=== PATIENT | male | born 1965 | race Caucasian/White ===

== ENCOUNTER → 2016-09-11 | Outpatient (CLI) | payer OTHER ==
[2016-09-11 12:51] LABS: MEAN CORPUSCULAR HEMOGLOBIN 30.2 pg (27.0-33.0); MEAN CORPUSCULAR VOLUME 88.8 fl (80.0-96.0); RED CELL DISTRIBUTION WIDTH 11.7 % (11.5-14.5); WHITE BLOOD COUNT 8.4 K/mm3 (4.0-10.0)
== END ==
LOC: M LAB 11:50
PROVIDERS: ATTEND Nurse Practitioner Family
DX: E78.5 Hyperlipidemia, unspecified (principal)

== ENCOUNTER → 2016-09-26 | Outpatient (REF) | payer OTHER ==
[2016-09-26 18:26] LABS: ALBUMIN 4.6 GM/DL (3.2-5.2); ALBUMIN/GLOBULIN RATIO 1.77 (1.00-1.93); ALKALINE PHOSPHATASE 36 U/L (45-117); ALT/SGPT 36 U/L (12-78); ANION GAP 9 MEQ/L (8-16); AST/SGOT 20 U/L (15-37); BILIRUBIN,TOTAL 0.3 MG/DL (0.2-1.0); BLOOD UREA NITROGEN 27 MG/DL (7-18); CALCIUM LEVEL 9.3 MG/DL (8.5-10.1); CARBON DIOXIDE LEVEL 28 MEQ/L (21-32); CHLORIDE LEVEL 105 MEQ/L (98-107); CREATININE FOR GFR 0.98 MG/DL (0.70-1.30); GLOMERULAR FILTRATION RATE > 60.0 (>56); GLUCOSE, FASTING 96 MG/DL (70-105); POTASSIUM SERUM 4.6 MEQ/L (3.5-5.1); SODIUM LEVEL 142 MEQ/L (136-145); TOTAL PROTEIN 7.2 GM/DL (6.4-8.2)
[2016-09-26 18:29] LABS: BASO # 0.1 K/mm3 (0.0-0.2); BASO % 0.9 % (0.0-1.0); EOS # 0.1 K/mm3 (0.0-0.50); EOS % 1.6 % (0.0-3.0); LARGE UNSTAINED CELL # 0.3 K/mm3 (0.0-0.4); LYMPH # 4.9 K/mm3 (1.5-4.5); LYMPH % 55.9 % (24.0-44.0); MEAN CORPUSCULAR HEMOGLOBIN 30.6 pg (27.0-33.0); MEAN CORPUSCULAR HGB CONC 34.1 g/dl (32.0-36.5); MONO # 0.5 K/mm3 (0.0-0.8); MONO % 5.7 % (0.0-5.0); NEUTROPHILS # 2.6 K/mm3 (1.8-7.7); NEUTROPHILS % 31.9 % (36.0-66.0); PLATELET COUNT, AUTOMATED 148 k/mm3 (150-450); RED CELL DISTRIBUTION WIDTH 11.8 % (11.5-14.5); WHITE BLOOD COUNT 8.2 K/mm3 (4.0-10.0)
== END ==
LOC: M LABNEURO 16:46
PROVIDERS: ATTEND Psychiatry & Neurology Neurology
DX: R56.9 Unspecified convulsions (principal)

== ENCOUNTER → 2017-02-27 | Outpatient (REF) | payer OTHER ==
[2017-02-27 14:44] LABS: BASO # 0.1 K/mm3 (0.0-0.2); BASO % 0.7 % (0.0-1.0); EOS # 0.2 K/mm3 (0.0-0.50); LARGE UNSTAINED CELL # 0.4 K/mm3 (0.0-0.4); LARGE UNSTAINED CELL % 4.5 % (0.0-4.0); LYMPH # 5.4 K/mm3 (1.5-4.5); LYMPH % 54.2 % (24.0-44.0); MEAN CORPUSCULAR HEMOGLOBIN 31.1 pg (27.0-33.0); MEAN CORPUSCULAR HGB CONC 34.8 g/dl (32.0-36.5); MEAN CORPUSCULAR VOLUME 89.4 fl (80.0-96.0); MONO # 0.6 K/mm3 (0.0-0.8); MONO % 5.9 % (0.0-5.0); NEUTROPHILS % 32.7 % (36.0-66.0); PLATELET COUNT, AUTOMATED 161 k/mm3 (150-450)
[2017-02-27 14:51] LABS: WHITE BLOOD COUNT 9.2 K/mm3 (4.0-10.0)
[2017-02-27 15:35] LABS: ALBUMIN 4.3 GM/DL (3.2-5.2); ALBUMIN/GLOBULIN RATIO 1.54 (1.00-1.93); ALKALINE PHOSPHATASE 34 U/L (45-117); ALT/SGPT 43 U/L (12-78); ANION GAP 8 MEQ/L (8-16); AST/SGOT 20 U/L (15-37); BILIRUBIN,TOTAL 0.3 MG/DL (0.2-1.0); BLOOD UREA NITROGEN 27 MG/DL (7-18); CALCIUM LEVEL 9.6 MG/DL (8.5-10.1); CARBON DIOXIDE LEVEL 24 MEQ/L (21-32); CHLORIDE LEVEL 108 MEQ/L (98-107); CHOLESTEROL LEVEL 202 MG/DL (<200); CREATININE FOR GFR 1.15 MG/DL (0.70-1.30); GLOMERULAR FILTRATION RATE > 60.0 (>56); GLUCOSE, FASTING 98 MG/DL (70-105); POTASSIUM SERUM 4.5 MEQ/L (3.5-5.1); SODIUM LEVEL 140 MEQ/L (136-145); TOTAL PROTEIN 7.1 GM/DL (6.4-8.2); TRIGLYCERIDES LEVEL 359 MG/DL (<150)
== END ==
LOC: M LAB REF 13:37
PROVIDERS: ATTEND Nurse Practitioner Family
DX: E78.5 Hyperlipidemia, unspecified (principal); E55.9 Vitamin D deficiency, unspecified

== ENCOUNTER → 2017-06-14 | Outpatient (CLI) | payer OTHER ==
[2017-06-14 15:22] LABS: BLOOD UREA NITROGEN 21 MG/DL (7-18); GLOMERULAR FILTRATION RATE > 60.0 (>56)
== END ==
LOC: M LABNEURO 11:00
PROVIDERS: ATTEND Psychiatry & Neurology Neurology
DX: I10 Essential (primary) hypertension (principal)

== ENCOUNTER → 2017-07-31 | Outpatient (REF) | payer OTHER ==
[2017-07-31 19:03] LABS: BASO # 0.1 10^3/uL (0.0-0.2); BASO % 0.7 % (0.0-1.0); EOS # 0.1 10^3/uL (0.0-0.50); EOS % 0.8 % (0.0-3.0); HEMATOCRIT 42.1 % (42.0-52.0); HEMOGLOBIN 14.3 g/dl (14.0-18.0); IMMATURE GRANULOCYTE % 0.2 % (0-0); LYMPH # 4.5 10^3/uL (1.5-4.5); LYMPH % 49.5 % (24.0-44.0); MEAN CORPUSCULAR HEMOGLOBIN 29.9 pg (27.0-33.0); MEAN CORPUSCULAR VOLUME 88.1 fl (80.0-96.0); MONO # 0.7 10^3/uL (0.0-0.8); MONO % 7.4 % (0.0-5.0); NEUTROPHILS # 3.7 10^3/uL (1.8-7.7); NEUTROPHILS % 41.4 % (36.0-66.0); PLATELET COUNT, AUTOMATED 171 10^3/uL (150-450); RED BLOOD COUNT 4.78 10^6/uL (4.30-6.10); RED CELL DISTRIBUTION WIDTH 11.9 % (11.5-14.5)
== END ==
LOC: M LAB REF 16:49
DX: R59.1 Generalized enlarged lymph nodes (principal)

== ENCOUNTER → 2017-08-20 | Outpatient (REF) | payer OTHER ==
[2017-08-20 17:51] LABS: INR 0.92; PARTIAL THROMBOPLASTIN TIME 28.7 SECONDS (26.8-37.9); PROTHROMBIN TIME 12.4 SECONDS (12.4-14.5)
[2017-08-20 18:12] LABS: SLIDE REVIEW Report; SOURCE PERIPHERAL SMEAR
[2017-08-20 18:13] LABS: REASON FOR REVIEW OTHER
[2017-08-20 18:17] LABS: C REACTIVE PROTEIN QUANTITATIV < 0.30 MG/DL (0.00-0.30)
[2017-08-20 19:34] LABS: ERYTHROCYTE SEDIMENTATION RATE 2 mm/hr (0-20)
[2017-08-22 09:38] LABS: HEPATITIS B SURFACE ANTIGEN NEGATIVE (NEGATIVE)
[2017-08-22 10:03] LABS: HEPATITIS C VIRUS ABY INDEX < 0.0 INDEX (<0.8)
[2017-08-22 10:04] LABS: HEPATITIS B CORE ANTIBODY IGM NEGATIVE (NEGATIVE); HIV 1&2 SCREEN CENTAUR NEGATIVE (NEGATIVE)
[2017-08-23 00:07] LABS: EBV VIRAL CAPSID AG IgM <36.0 U/mL (0.0-35.9)
[2017-08-23 00:07] LABS: EBV AB TO NUCLEAR ANTIGEN 66.9 U/mL (0.0-17.9)
== END ==
LOC: M LAB REF 16:47
DX: R59.1 Generalized enlarged lymph nodes (principal)

== ENCOUNTER → 2017-08-21 | Outpatient (CLI) | payer OTHER | LOC: M PAIN 13:30 | DX: M54.2 Cervicalgia (principal); M79.1 Myalgia; G89.29 Other chronic pain; G40.909 Epilepsy, unspecified, not intractable, without status epilepticus; K21.9 Gastro-esophageal reflux disease without esophagitis; E78.00 Pure hypercholesterolemia, unspecified; Z79.899 Other long term (current) drug therapy; Z88.5 Allergy status to narcotic agent; Z88.8 Allergy status to other drugs, medicaments and biological substances; Z98.1 Arthrodesis status | CPT/HCPCS: G0463 ==

== ENCOUNTER → 2017-09-03 | Outpatient (REF) | payer OTHER | LOC: M LAB REF 17:17 | DX: R59.0 Localized enlarged lymph nodes (principal); C85.10 Unspecified B-cell lymphoma, unspecified site | CPT/HCPCS: 88300 ==

== ENCOUNTER → 2017-09-10 | Outpatient (CLI) | payer MEDICARE, MEDICAID ==
[~2017-09-10] MED LIST: LIDOCAINE 1% MDV 20ML VIAL As Ordered
== END ==
LOC: M RAD 12:05 → M RADPRO 12:05
DX: C85.10 Unspecified B-cell lymphoma, unspecified site (principal); R59.0 Localized enlarged lymph nodes; I10 Essential (primary) hypertension; E78.5 Hyperlipidemia, unspecified; M54.12 Radiculopathy, cervical region; I25.10 Atherosclerotic heart disease of native coronary artery without angina pectoris; H35.52 Pigmentary retinal dystrophy; H54.415A Blindness right eye category 5, normal vision left eye; Z79.899 Other long term (current) drug therapy; Z88.5 Allergy status to narcotic agent; Z88.1 Allergy status to other antibiotic agents; Z87.19 Personal history of other diseases of the digestive system; Z98.890 Other specified postprocedural states; Z86.69 Personal history of other diseases of the nervous system and sense organs; Z86.39 Personal history of other endocrine, nutritional and metabolic disease
CPT/HCPCS: 10022

== ENCOUNTER → 2017-09-18 | Outpatient (CLI) | payer OTHER | LOC: M PAIN 13:30 | DX: M54.2 Cervicalgia (principal); M79.1 Myalgia; K21.9 Gastro-esophageal reflux disease without esophagitis; G40.901 Epilepsy, unspecified, not intractable, with status epilepticus; Z79.899 Other long term (current) drug therapy; Z88.8 Allergy status to other drugs, medicaments and biological substances | CPT/HCPCS: G0463 ==

== ENCOUNTER → 2017-09-26 | Outpatient (CLI) | payer MEDICARE, OTHER, MEDICAID ==
[~2017-09-26] MED LIST changes: +GASTROGRAFIN SOLUTION 30ML (Q9963) As Ordered; +ISOVUE-370 76% 100ML VIAL (Q9967) As Ordered; -LIDOCAINE 1% MDV 20ML VIAL As Ordered
== END ==
LOC: M RAD 12:01
DX: C91.10 Chronic lymphocytic leukemia of B-cell type not having achieved remission (principal); N28.1 Cyst of kidney, acquired; K57.30 Diverticulosis of large intestine without perforation or abscess without bleeding
CPT/HCPCS: Q9963

== ENCOUNTER → 2017-11-05 | Outpatient (REF) | payer OTHER ==
[2017-11-05 13:33] LABS: BASO % 0.5 % (0.0-1.0); EOS # 0.1 10^3/uL (0.0-0.50); EOS % 1.7 % (0.0-3.0); HEMATOCRIT 42.4 % (42.0-52.0); HEMOGLOBIN 14.5 g/dl (13.5-17.5); IMMATURE GRANULOCYTE % 0.2 % (0-3.0); MEAN CORPUSCULAR HEMOGLOBIN 30.5 pg (27.0-33.0); MEAN CORPUSCULAR HGB CONC 34.2 g/dl (32.0-36.5); MEAN CORPUSCULAR VOLUME 89.1 fl (80.0-96.0); MONO # 0.8 10^3/uL (0.0-0.8); MONO % 9.9 % (0.0-5.0); NEUTROPHILS # 3.3 10^3/uL (1.8-7.7); NEUTROPHILS % 39.7 % (36.0-66.0); PLATELET COUNT, AUTOMATED 174 10^3/uL (150-450); RED BLOOD COUNT 4.76 10^6/uL (4.30-6.10); RED CELL DISTRIBUTION WIDTH 12.1 % (11.5-14.5); WHITE BLOOD COUNT 8.4 10^3/uL (4.0-10.0)
[2017-11-05 14:29] LABS: ALBUMIN 4.5 GM/DL (3.2-5.2); ALBUMIN/GLOBULIN RATIO 1.55 (1.00-1.93); ALKALINE PHOSPHATASE 42 U/L (45-117); ALT/SGPT 37 U/L (12-78); ANION GAP 9 MEQ/L (8-16); AST/SGOT 19 U/L (7-37); BILIRUBIN,TOTAL 0.2 MG/DL (0.2-1.0); BLOOD UREA NITROGEN 20 MG/DL (7-18); CALCIUM LEVEL 9.4 MG/DL (8.5-10.1); CARBON DIOXIDE LEVEL 22 MEQ/L (21-32); CHLORIDE LEVEL 109 MEQ/L (98-107); CREATININE FOR GFR 1.03 MG/DL (0.70-1.30); GLOMERULAR FILTRATION RATE > 60.0 (>56); GLUCOSE, FASTING 109 MG/DL (70-100); POTASSIUM SERUM 4.6 MEQ/L (3.5-5.1); SODIUM LEVEL 140 MEQ/L (136-145); TOTAL PROTEIN 7.4 GM/DL (6.4-8.2); VALPROIC ACID (DEPAKOTE) 45.9 UG/ML (50.0-100.0)
[2017-11-07 10:17] LABS: LEVETIRACETAM (KEPPRA) 7.8 ug/mL (10.0-40.0)
== END ==
LOC: M LABNEURO 11:12
DX: R56.9 Unspecified convulsions (principal)
CPT/HCPCS: 80164

== ENCOUNTER → 2017-11-08 | Outpatient (CLI) | payer OTHER | LOC: M PAIN 13:00 | DX: G89.29 Other chronic pain (principal); M54.2 Cervicalgia; M79.1 Myalgia; G40.909 Epilepsy, unspecified, not intractable, without status epilepticus; M54.5 Low back pain; G43.909 Migraine, unspecified, not intractable, without status migrainosus; H53.149 Visual discomfort, unspecified; K21.9 Gastro-esophageal reflux disease without esophagitis; E78.00 Pure hypercholesterolemia, unspecified; Z79.899 Other long term (current) drug therapy; Z88.6 Allergy status to analgesic agent; Z88.5 Allergy status to narcotic agent; Z88.8 Allergy status to other drugs, medicaments and biological substances | CPT/HCPCS: G0463 ==

== ENCOUNTER → 2017-12-26 | Outpatient (REF) | payer OTHER, MEDICARE, MEDICAID ==
[2017-12-27 14:16] LABS: BETA 2 MICROGLOBULIN 1.6 mg/L (0.6-2.4)
== END ==
LOC: M LAB REF 12:55
DX: C91.50 Adult T-cell lymphoma/leukemia (HTLV-1-associated) not having achieved remission (principal)
CPT/HCPCS: 82232

== ENCOUNTER → 2018-01-22 | Outpatient (REF) | payer OTHER, MEDICARE, MEDICAID ==
[2018-01-22 18:36] LABS: ESTIMATED AVERAGE GLUCOSE 120 MG/DL (60-110); HEMOGLOBIN A1c 5.8 %
[2018-01-22 18:58] LABS: HEMATOCRIT 40.2 % (42.0-52.0); HEMOGLOBIN 13.9 g/dl (13.5-17.5); MEAN CORPUSCULAR HEMOGLOBIN 30.8 pg (27.0-33.0); MEAN CORPUSCULAR HGB CONC 34.6 g/dl (32.0-36.5); MEAN CORPUSCULAR VOLUME 88.9 fl (80.0-96.0); PLATELET COUNT, AUTOMATED 186 10^3/uL (150-450); RED BLOOD COUNT 4.52 10^6/uL (4.30-6.10); RED CELL DISTRIBUTION WIDTH 11.9 % (11.5-14.5); WHITE BLOOD COUNT 15.2 10^3/uL (4.0-10.0)
[2018-01-22 19:05] LABS: ADD MANUAL DIFFER YES; DIFF SLIDE NUMBER 388; POSITIVE DIFF POS FLAG
[2018-01-22 19:39] LABS: EOSINOPHILS 3 % (0-5); LYMPHOCYTES 34 % (16-52); MONOCYTES 5 % (0-8); NEUTROPHILS 58 % (35-75); PLATELET ESTIMATE NORMAL (NORMAL)
[2018-01-22 22:06] LABS: ALBUMIN 4.3 GM/DL (3.2-5.2); ALBUMIN/GLOBULIN RATIO 1.65 (1.00-1.93); ALKALINE PHOSPHATASE 45 U/L (45-117); ALT/SGPT 33 U/L (12-78); ANION GAP 9 MEQ/L (8-16); AST/SGOT 17 U/L (7-37); BILIRUBIN,TOTAL 0.4 MG/DL (0.2-1.0); BLOOD UREA NITROGEN 25 MG/DL (7-18); CALCIUM LEVEL 8.6 MG/DL (8.5-10.1); CARBON DIOXIDE LEVEL 23 MEQ/L (21-32); CHLORIDE LEVEL 111 MEQ/L (98-107); CHOLESTEROL LEVEL 123 MG/DL (<200); CHOLESTEROL RISK RATIO 3.727 (<5); CREATININE FOR GFR 0.99 MG/DL (0.70-1.30); GLOMERULAR FILTRATION RATE > 60.0 (>56); GLUCOSE, FASTING 89 MG/DL (70-100); HDL CHOLESTEROL 33 MG/DL (>40); LDL CHOLESTEROL 46.6 MG/DL (<100); NON-HDL-C 90 MG/DL; POTASSIUM SERUM 4.7 MEQ/L (3.5-5.1); SODIUM LEVEL 143 MEQ/L (136-145); TOTAL PROTEIN 6.9 GM/DL (6.4-8.2); TRIGLYCERIDES LEVEL 217 MG/DL (<150)
== END ==
LOC: M LAB REF 17:39
DX: E78.5 Hyperlipidemia, unspecified (principal); I10 Essential (primary) hypertension; E55.9 Vitamin D deficiency, unspecified
CPT/HCPCS: 80053

== ENCOUNTER → 2018-02-11 | Outpatient (CLI) | payer OTHER | LOC: M PAIN 13:30 | DX: M54.2 Cervicalgia (principal); G89.29 Other chronic pain; M79.1 Myalgia; G40.909 Epilepsy, unspecified, not intractable, without status epilepticus; G43.909 Migraine, unspecified, not intractable, without status migrainosus; H53.149 Visual discomfort, unspecified; K21.9 Gastro-esophageal reflux disease without esophagitis; E78.00 Pure hypercholesterolemia, unspecified; Z79.899 Other long term (current) drug therapy; Z88.5 Allergy status to narcotic agent; Z88.8 Allergy status to other drugs, medicaments and biological substances | CPT/HCPCS: G0463 ==

== ENCOUNTER 2018-02-18 10:22 | Day surgery (SDC) | payer OTHER, MEDICAID ==
[2018-02-18] MEDS: NS 1,000 ML IV (10:45)
[2018-02-18] MEDS ORDERED: PROPOFOL 200 MG/20 ML VIAL As Ordered ×3 (11:01→11:34)
[2018-02-18] MEDS ORDERED: LIDOCAINE 2% INJ 100 MG/5 ML SDV (FOR ANES.) As Ordered (11:01)
== END 2018-02-18 12:05 | disposition home or self-care (01) ==
LOC: M OPP 10:22
DX: R12 Heartburn (principal); K22.70 Barrett's esophagus without dysplasia; K22.8 Other specified diseases of esophagus; K44.9 Diaphragmatic hernia without obstruction or gangrene; I10 Essential (primary) hypertension; E78.5 Hyperlipidemia, unspecified; K21.9 Gastro-esophageal reflux disease without esophagitis; M19.90 Unspecified osteoarthritis, unspecified site; R56.9 Unspecified convulsions; H25.9 Unspecified age-related cataract; R51 Headache; Z86.79 Personal history of other diseases of the circulatory system; Z88.8 Allergy status to other drugs, medicaments and biological substances; Z79.899 Other long term (current) drug therapy; Z87.891 Personal history of nicotine dependence
CPT/HCPCS: 43239

== ENCOUNTER → 2018-04-24 | Outpatient (CLI) | payer MEDICARE | LOC: M RAD 09:46 | DX: C83.01 Small cell B-cell lymphoma, lymph nodes of head, face, and neck (principal); R16.1 Splenomegaly, not elsewhere classified; K76.0 Fatty (change of) liver, not elsewhere classified | CPT/HCPCS: 76700 ==

== ENCOUNTER → 2018-05-14 | Outpatient (CLI) | payer MEDICARE, MEDICAID | LOC: M PAIN 13:30 | DX: M54.2 Cervicalgia (principal); M79.18 Myalgia, other site; G40.909 Epilepsy, unspecified, not intractable, without status epilepticus; G43.909 Migraine, unspecified, not intractable, without status migrainosus; K21.9 Gastro-esophageal reflux disease without esophagitis; E78.00 Pure hypercholesterolemia, unspecified; Z79.899 Other long term (current) drug therapy; Z88.5 Allergy status to narcotic agent; Z88.6 Allergy status to analgesic agent; Z88.8 Allergy status to other drugs, medicaments and biological substances; Z85.6 Personal history of leukemia | CPT/HCPCS: G0463 ==

== ENCOUNTER → 2018-05-15 | Outpatient (CLI) | payer MEDICARE ==
[~2018-05-15] MED LIST changes: +E-Z-PAQUE 96% w/w SUSP 176GM BTL As Ordered; -GASTROGRAFIN SOLUTION 30ML (Q9963) As Ordered; -ISOVUE-370 76% 100ML VIAL (Q9967) As Ordered
== END ==
LOC: M RAD 08:34
DX: R19.7 Diarrhea, unspecified (principal)
CPT/HCPCS: 74250

== ENCOUNTER → 2018-05-17 | Outpatient (CLI) | payer MEDICARE, MEDICAID ==
[~2018-05-17] MED LIST changes: -E-Z-PAQUE 96% w/w SUSP 176GM BTL As Ordered; +GASTROGRAFIN SOLUTION 30ML (Q9963) As Ordered; +ISOVUE-370 76% 100ML VIAL (Q9967) As Ordered
== END ==
LOC: M RAD 11:18
DX: R10.9 Unspecified abdominal pain (principal); R61 Generalized hyperhidrosis; Z98.1 Arthrodesis status; M50.30 Other cervical disc degeneration, unspecified cervical region; M51.34 Other intervertebral disc degeneration, thoracic region; I25.10 Atherosclerotic heart disease of native coronary artery without angina pectoris; K57.30 Diverticulosis of large intestine without perforation or abscess without bleeding; K76.0 Fatty (change of) liver, not elsewhere classified
CPT/HCPCS: Q9963

== ENCOUNTER → 2018-06-18 | Outpatient (REF) | payer MEDICARE ==
[2018-06-18 19:18] LABS: CREATININE FOR GFR 1.12 MG/DL (0.70-1.30); GLOMERULAR FILTRATION RATE > 60.0 (>56)
[2018-06-18 19:18] LABS: BLOOD UREA NITROGEN 27 MG/DL (7-18)
== END ==
LOC: M LABNEURO 13:41
DX: N18.9 Chronic kidney disease, unspecified (principal)
CPT/HCPCS: 82565

== ENCOUNTER → 2019-03-11 | Outpatient (REF) | payer MEDICARE, MEDICAID ==
[~2019-03-11] MED LIST changes: +AMOX875T PO; +ATOR80TA59 PO; +B COTAB3 PO; +BILB1CAP2 PO; +DEBR6.5S4 AS; +DIAZ5TAB PO; +DIVA500T94 PO; +ENAL20TA PO; -GASTROGRAFIN SOLUTION 30ML (Q9963) As Ordered; -ISOVUE-370 76% 100ML VIAL (Q9967) As Ordered; +KEPP750T3 PO; +KETO2CR EXT; +LUTE15CA PO; +MELO15TA28 PO; +OMEP20CA4 PO; +VITA2000 PO
[2019-03-11 17:54] LABS: ALBUMIN 4.1 GM/DL (3.2-5.2); ALT/SGPT 21 U/L (12-78); BILIRUBIN,TOTAL 0.2 MG/DL (0.2-1.0); BLOOD UREA NITROGEN 33 MG/DL (7-18); CALCIUM LEVEL 8.8 MG/DL (8.5-10.1); CARBON DIOXIDE LEVEL 22 MEQ/L (21-32); CHLORIDE LEVEL 106 MEQ/L (98-107); CHOLESTEROL LEVEL 157 MG/DL (<200); CHOLESTEROL RISK RATIO 4.361 (<5); CREATININE FOR GFR 1.04 MG/DL (0.70-1.30); GLOMERULAR FILTRATION RATE > 60.0 (>56); GLUCOSE, FASTING 92 MG/DL (70-100); HDL CHOLESTEROL 36 MG/DL (>40); LDL CHOLESTEROL 53 MG/DL (<100); NON-HDL-C 121 MG/DL; POTASSIUM SERUM 4.2 MEQ/L (3.5-5.1); SODIUM LEVEL 139 MEQ/L (136-145); TOTAL PROTEIN 6.5 GM/DL (6.4-8.2); TRIGLYCERIDES LEVEL 338 MG/DL (<150)
[2019-03-11 18:07] LABS: HEMOGLOBIN A1c 5.7 %
== END ==
LOC: M LAB REF 17:02
PROVIDERS: ATTEND Nurse Practitioner Adult Health
DX: E78.5 Hyperlipidemia, unspecified (principal); I10 Essential (primary) hypertension; Z79.899 Other long term (current) drug therapy

== ENCOUNTER → 2019-07-03 | Outpatient (REF) | payer MEDICARE, MEDICAID ==
[~2019-07-03] MED LIST changes: +OMEP-172 PO; -OMEP20CA4 PO
[2019-07-03 19:09] LABS: HEMATOCRIT 44.4 % (42.0-52.0); HEMOGLOBIN 14.5 g/dl (13.5-17.5); MEAN CORPUSCULAR HEMOGLOBIN 29.7 pg (27.0-33.0); MEAN CORPUSCULAR HGB CONC 32.7 g/dl (32.0-36.5); MEAN CORPUSCULAR VOLUME 90.8 fl (80.0-96.0); PLATELET COUNT, AUTOMATED 161 10^3/uL (150-450); RED BLOOD COUNT 4.89 10^6/uL (4.30-6.10); WHITE BLOOD COUNT 9.1 10^3/uL (4.0-10.0)
[2019-07-03 19:15] LABS: ALBUMIN 4.4 GM/DL (3.2-5.2); ALT/SGPT 23 U/L (12-78); BILIRUBIN,TOTAL 0.3 MG/DL (0.2-1.0); BLOOD UREA NITROGEN 26 MG/DL (7-18); CALCIUM LEVEL 9.7 MG/DL (8.5-10.1); CARBON DIOXIDE LEVEL 27 MEQ/L (21-32); CHLORIDE LEVEL 105 MEQ/L (98-107); CREATININE FOR GFR 1.11 MG/DL (0.70-1.30); GLOMERULAR FILTRATION RATE > 60.0 (>56); GLUCOSE, FASTING 86 MG/DL (70-100); IRON (FE) 115 UG/DL (65-175); PERCENT SATURATION 29.5 % (19.7-50.0); POTASSIUM SERUM 5.5 MEQ/L (3.5-5.1); SODIUM LEVEL 138 MEQ/L (136-145); TOTAL IRON BINDING CAPACITY 390 UG/DL (250-450); TOTAL PROTEIN 7.5 GM/DL (6.4-8.2)
[2019-07-03 19:20] LABS: TOTAL 25(OH) VITAMIN D 31.4 NG/ML (30.0-100.0)
[2019-07-03 19:24] LABS: HEMOGLOBIN A1c 5.7 %
[2019-07-03 19:41] LABS: ATYPICAL LYMPH 7 % (0-5); BASOPHILS 1 % (0-1); LYMPHOCYTES 38 % (16-44); MONOCYTES 6 % (0-5); NEUTROPHILS 48 % (28-66); PLATELET ESTIMATE NORMAL (NORMAL)
== END ==
LOC: M LAB REF 18:36
PROVIDERS: ATTEND Nurse Practitioner Adult Health
DX: D64.9 Anemia, unspecified (principal); R73.03 Prediabetes; E55.9 Vitamin D deficiency, unspecified; Z79.899 Other long term (current) drug therapy

== ENCOUNTER → 2020-01-07 | Outpatient (REF) | payer MEDICARE, MEDICAID ==
[~2020-01-07] MED LIST changes: +B-COTAB10 PO; -ENAL20TA PO; +ENAL20TA11 PO; +ICAPTAB PO; +MAGN250T7 PO; -OMEP-172 PO; +OMEP1CAP73 PO; +VITA-157 PO
[2020-01-07 17:24] LABS: BASO # 0.1 10^3/uL (0.0-0.2); BASO % 0.6 % (0.0-1.0); EOS # 0.1 10^3/uL (0.0-0.5); HEMATOCRIT 40.8 % (42.0-52.0); HEMOGLOBIN 13.6 g/dl (13.5-17.5); LYMPH # 4.4 10^3/uL (1.5-5.0); LYMPH % 56.4 % (24.0-44.0); MEAN CORPUSCULAR HGB CONC 33.3 g/dl (32.0-36.5); MEAN CORPUSCULAR VOLUME 89.9 fl (80.0-96.0); MONO # 0.6 10^3/uL (0.0-0.8); MONO % 8.1 % (0.0-5.0); NEUTROPHILS # 2.7 10^3/uL (1.5-8.5); NEUTROPHILS % 33.8 % (36.0-66.0); PLATELET COUNT, AUTOMATED 162 10^3/uL (150-450); RED BLOOD COUNT 4.54 10^6/uL (4.30-6.10); WHITE BLOOD COUNT 7.9 10^3/uL (4.0-10.0)
[2020-01-07 17:40] LABS: ALBUMIN 4.4 GM/DL (3.2-5.2); ALT/SGPT 25 U/L (12-78); BILIRUBIN,TOTAL 0.4 MG/DL (0.2-1.0); BLOOD UREA NITROGEN 26 MG/DL (7-18); CALCIUM LEVEL 9.8 MG/DL (8.5-10.1); CARBON DIOXIDE LEVEL 26 MEQ/L (21-32); CHLORIDE LEVEL 104 MEQ/L (98-107); CHOLESTEROL LEVEL 194 MG/DL (<200); CHOLESTEROL RISK RATIO 4.731 (<5); CREATININE FOR GFR 1.02 MG/DL (0.70-1.30); GLOMERULAR FILTRATION RATE > 60.0 (>56); GLUCOSE, FASTING 93 MG/DL (70-100); HDL CHOLESTEROL 41 MG/DL (>40); LDL CHOLESTEROL 108 MG/DL (<100); NON-HDL-C 153 MG/DL; POTASSIUM SERUM 4.5 MEQ/L (3.5-5.1); SODIUM LEVEL 138 MEQ/L (136-145); TOTAL 25(OH) VITAMIN D 37.1 NG/ML (30.0-100.0); TOTAL PROTEIN 7.2 GM/DL (6.4-8.2); TRIGLYCERIDES LEVEL 226 MG/DL (<150)
[2020-01-07 17:42] LABS: HEMOGLOBIN A1c 6.3 %
== END ==
LOC: M LAB REF 16:57
PROVIDERS: ATTEND Nurse Practitioner Adult Health
DX: Z13.9 Encounter for screening, unspecified (principal); E07.9 Disorder of thyroid, unspecified; E78.00 Pure hypercholesterolemia, unspecified; R97.20 Elevated prostate specific antigen [PSA]
CPT/HCPCS: 80053; 80061; 82306; 83036; 84443; 85025; G0103

== ENCOUNTER → 2020-04-05 | Outpatient (CLI) | payer MEDICARE, MEDICAID ==
[2020-04-05 15:15] LABS: HEMATOCRIT 40.6 % (42.0-52.0); HEMOGLOBIN 14.1 g/dl (13.5-17.5); MEAN CORPUSCULAR HEMOGLOBIN 31.3 pg (27.0-33.0); MEAN CORPUSCULAR HGB CONC 34.7 g/dl (32.0-36.5); PLATELET COUNT, AUTOMATED 165 10^3/uL (150-450); RED BLOOD COUNT 4.51 10^6/uL (4.30-6.10); WHITE BLOOD COUNT 7.9 10^3/uL (4.0-10.0)
[2020-04-05 15:43] LABS: ATYPICAL LYMPH 5 % (0-5); BASOPHILS 2 % (0-1); LYMPHOCYTES 62 % (16-44); MONOCYTES 3 % (0-5); NEUTROPHILS 28 % (28-66)
[2020-04-05 15:44] LABS: ANISOCYTOSIS 1+; PLATELET ESTIMATE NORMAL (NORMAL)
[2020-04-05 16:12] LABS: IMMUNOGLOBULIN M 9.1 MG/DL (40-230)
[2020-04-07 23:07] LABS: CMV QUANT DNA PCR (PLASMA) Negative (Negative); CYTOMEGALOVIRUS IgG ANTIBODY <0.60 U/mL (0.00-0.59); CYTOMEGALOVIRUS IgM ANTIBODY <30.0 AU/mL (0.0-29.9); HAPTOGLOBIN 101 mg/dL (29-370)
== END ==
LOC: M LAB 14:39
PROVIDERS: ATTEND Internal Medicine Hematology & Oncology
DX: C85.10 Unspecified B-cell lymphoma, unspecified site (principal)

== ENCOUNTER → 2020-05-05 | Outpatient (REF) | payer MEDICARE, MEDICAID ==
[2020-05-05 17:52] LABS: HEMOGLOBIN A1c 5.6 %
== END ==
LOC: M LAB REF 16:42
PROVIDERS: ATTEND Nurse Practitioner Adult Health
DX: G40.909 Epilepsy, unspecified, not intractable, without status epilepticus (principal); R73.03 Prediabetes

== ENCOUNTER → 2020-06-04 | Outpatient (CLI) | payer MEDICARE, MEDICAID ==
[~2020-06-04] MED LIST changes: +GASTROGRAFIN SOLUTION 30ML (Q9963) As Ordered ONE; +ISOVUE-370 76% 100ML VIAL As Ordered ONE
--- NOTE | 2020-06-04 14:20 | REPVR ---
PROCEDURE INFORMATION: Exam: CT Neck With Contrast Exam date and time: 06/04/2020 1:25 PM Age: 55 years old Clinical indication: Neck pain; Additional info: History of small lymphocytic leukemia. TECHNIQUE: Imaging protocol: Computed tomography images of the neck with intravenous contrast. Radiation optimization: All CT scans at this facility use at least one of these dose optimization techniques: automated exposure control; mA and/or kV adjustment per patient size (includes targeted exams where dose is matched to clinical indication); or iterative reconstruction. Contrast material: ISOVUE 370; Contrast volume: 50 ml; Contrast route: INTRAVENOUS (IV); COMPARISON: CT Neck with contrast 05/17/2018 12:52 PM FINDINGS: Orbital cavity: Thinning of the lenses of the globes consistent with prior lens surgery. Nasopharynx: Unremarkable. Oropharynx: Postinfectious postinflammatory calcifications in the palatine tonsils. Hypopharynx: Unremarkable. Larynx: Unremarkable. Normal epiglottis. Retropharyngeal space: Unremarkable. Submandibular/Parotid glands: Normal. Glands are normal in size. Thyroid: Normal. No enlarged or calcified nodules. Lymph nodes: Lymph nodes are not individually pathologically enlarged. Internal jugular and accessory cholo chain lymph nodes are increased in number, as before. For example, a left jugulodigastric lymph node measuring 9 x 6 mm, stable. Trachea: Visualized trachea is unremarkable. Lungs: Unremarkable as visualized. Bones/joints: Prior cervical ACDF from C4 through C7. There is solid osseous bridging across C4-C5 interbody graft. Suggestion of nonunion at C4-C5 and C6-C7. There is subsidence of the C4-C5 interbody graft into the endplates, as before. Vasculature: The left vertebral artery is dominant. Patent. The right vertebral artery is developmentally hypoplastic, ends as PICA. There is mild intracranial atherosclerosis. [id number] cervical carotid atherosclerosis. Soft tissues: Unremarkable. No significant soft tissue swelling. IMPRESSION: 1. No acute findings identified. No significant interval change. 2. Cervical lymph nodes are increased in number, stable since prior. 3. Cervical ACDF again demonstrated from C4 through C7. 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 Electronically signed by: Eneida Tee On 06/04/2020 14:20:20 PM
--- NOTE | 2020-06-04 19:23 | REP ---
INDICATION: SLL COMPARISON: 05/17/2018 TECHNIQUE: Axial contrast enhanced images from the thoracic inlet to the upper abdomen with coronal and sagittal reformations using 100 ml Isovue [address] of the abdomen and pelvis was obtained. This CT examination was performed using the following dose reduction techniques: Automated exposure control, adjustment of mA and/or kv according to the patient's size, and use of iterative reconstruction technique. FINDINGS: Bilateral lung kay are well aerated and clear. No consolidation, suspicious nodule or mass. No pleural effusion. No pneumothorax. Tracheobronchial tree is patent. No obvious adenopathy. Thoracic aorta without aneurysm or dissection. Atherosclerotic changes to the coronary arteries noted without cardiomegaly or pericardial effusion. Osseous structures are intact and without acute osseous abnormality. IMPRESSION: Essentially normal contrast-enhanced chest CT. No acute mediastinal or pleuroparenchymal process. <Electronically signed by Blaise Kolb > 06/04/20 [id number]
--- NOTE | 2020-06-04 19:36 | REP ---
INDICATION: SLL. COMPARISON: 05/17/2018 TECHNIQUE: Axial contrast-enhanced images from the lung bases to the pubic symphysis using 100 cc Isovue 370 intravenous contrast material. Delayed images of the abdomen along with coronal and sagittal reformations obtained. This CT examination was performed using the following dose reduction techniques: Automated exposure control, adjustment of mA and/or kv according to the patient's size, and the use of iterative reconstruction technique. FINDINGS: Liver, spleen, pancreas, gallbladder, bilateral adrenal glands and kidneys are normal. Incidental 2.3 cm and 1.0 cm simple right renal cysts and 9 mm simple left renal cyst identified. The enteric system including stomach, small, and large bowel appears normal. No evidence for obstruction or acute inflammatory process. Normal terminal ileum and appendix are identified in the right lower quadrant. Few scattered sigmoid diverticula noted without acute diverticulitis. Pelvis demonstrates normal bladder and age-appropriate prostate/seminal vesicles. No ascites. No free air. No intraperitoneal or retroperitoneal adenopathy. Abdominal aorta and vasculature appear normal. Musculoskeletal structures are intact and without acute osseous abnormality. IMPRESSION: No acute abdominopelvic pathology appreciated. Simple bilateral renal cysts. Scattered sigmoid diverticula without acute diverticulitis. <Electronically signed by Blaise Kolb > 06/04/20 [id number]
== END ==
LOC: M RAD 11:26
PROVIDERS: ATTEND Specialist
DX: C83.00 Small cell B-cell lymphoma, unspecified site (principal); Z98.1 Arthrodesis status; I67.2 Cerebral atherosclerosis; I65.22 Occlusion and stenosis of left carotid artery; N28.1 Cyst of kidney, acquired; K57.30 Diverticulosis of large intestine without perforation or abscess without bleeding; I25.10 Atherosclerotic heart disease of native coronary artery without angina pectoris
CPT/HCPCS: 70491; 71260; 74177; Q9963; Q9967

== ENCOUNTER → 2020-10-28 | Outpatient (REF) | payer MEDICARE, MEDICAID ==
[~2020-10-28] MED LIST changes: -GASTROGRAFIN SOLUTION 30ML (Q9963) As Ordered ONE; -ISOVUE-370 76% 100ML VIAL As Ordered ONE; -VITA-157 PO; +VITAE40CA PO
[2020-10-28 18:01] LABS: BASO # 0.1 10^3/uL (0.0-0.2); BASO % 0.8 % (0.0-1.0); EOS # 0.2 10^3/uL (0.0-0.5); EOS % 2.3 % (0.0-3.0); HEMATOCRIT 42.5 % (42.0-52.0); LYMPH # 4.3 10^3/uL (1.5-5.0); LYMPH % 47.8 % (24.0-44.0); MEAN CORPUSCULAR HEMOGLOBIN 29.7 pg (27.0-33.0); MEAN CORPUSCULAR HGB CONC 32.9 g/dl (32.0-36.5); MONO # 0.8 10^3/uL (0.0-0.8); MONO % 9.1 % (2.0-8.0); NEUTROPHILS # 3.6 10^3/uL (1.5-8.5); NEUTROPHILS % 39.7 % (36.0-66.0); PLATELET COUNT, AUTOMATED 210 10^3/uL (150-450); RED BLOOD COUNT 4.72 10^6/uL (4.30-6.10)
[2020-10-28 18:04] LABS: APPEARANCE, URINE CLEAR (CLEAR); BACTERIA, URINE AUTO NEGATIVE (NEGATIVE); BILIRUBIN, URINE AUTO NEGATIVE (NEGATIVE); BLOOD, URINE BLOOD NEGATIVE (NEGATIVE); COLOR, URINE YELLOW (YELLOW); GLUCOSE, URINE (UA) AUTO NEGATIVE (NEGATIVE); KETONE, URINE AUTO TRACE mg/dL (NEGATIVE); LEUKOCYTE ESTERASE, URINE AUTO NEGATIVE (NEGATIVE); NITRITE, URINE AUTO NEGATIVE (NEGATIVE); PROTEIN, URINE AUTO NEGATIVE (NEGATIVE); RBC, URINE AUTO 1 /HPF (0-3); SPECIFIC GRAVITY URINE AUTO 1.011 (1.002-1.035); SQUAMOUS EPITHELIAL CELL UR AU 0 /HPF (0-6); UROBILINOGEN, URINE AUTO 0.2 mg/dL (0.0-2.0); WBC, URINE AUTO 0 /HPF (0-3)
[2020-10-28 20:43] LABS: ALBUMIN 4.3 GM/DL (3.2-5.2); ALT/SGPT 23 U/L (12-78); BILIRUBIN,TOTAL 0.3 MG/DL (0.2-1.0); BLOOD UREA NITROGEN 21 MG/DL (7-18); CARBON DIOXIDE LEVEL 27 MEQ/L (21-32); CHLORIDE LEVEL 110 MEQ/L (98-107); CHOLESTEROL LEVEL 144 MG/DL (<200); CHOLESTEROL RISK RATIO 3.891 (<5); CPK CREATINE PHOSPHOKINASE 178 U/L (39-308); CREATININE FOR GFR 0.93 MG/DL (0.70-1.30); GLOMERULAR FILTRATION RATE > 60.0 (>56); GLUCOSE, FASTING 93 MG/DL (70-100); HDL CHOLESTEROL 37 MG/DL (>40); LDL CHOLESTEROL 64 MG/DL (<100); NON-HDL-C 107 MG/DL; POTASSIUM SERUM 4.9 MEQ/L (3.5-5.1); SODIUM LEVEL 144 MEQ/L (136-145); TOTAL PROTEIN 7.1 GM/DL (6.4-8.2); TRIGLYCERIDES LEVEL 217 MG/DL (<150); VALPROIC ACID (DEPAKOTE) 108.2 UG/ML (50.0-100.0)
[2020-10-28 20:47] LABS: MALB URINE SIEMENS 8.4 MG/L
[2020-10-28 21:49] LABS: HEMOGLOBIN A1c 5.6 %
[2020-10-29 01:29] LABS: CREATININE, URINE 56.5 MG/DL; MAU/CREAT RATIO 14.8 MCG/MG (0.0-30.0)
== END ==
LOC: M LAB REF 16:10
PROVIDERS: ATTEND Pediatrics
DX: G40.909 Epilepsy, unspecified, not intractable, without status epilepticus (principal); E78.5 Hyperlipidemia, unspecified; R73.03 Prediabetes; I10 Essential (primary) hypertension; T46.6X5A Adverse effect of antihyperlipidemic and antiarteriosclerotic drugs, initial encounter

== ENCOUNTER → 2021-03-30 | Outpatient (CLI) | payer MEDICARE, MEDICAID ==
[2021-03-30 18:04] LABS: BASO # 0.1 10^3/uL (0.0-0.2); BASO % 0.7 % (0.0-1.0); EOS # 0.1 10^3/uL (0.0-0.5); EOS % 1.5 % (0.0-3.0); HEMOGLOBIN 14.1 g/dl (13.5-17.5); LYMPH # 3.4 10^3/uL (1.5-5.0); LYMPH % 50.9 % (24.0-44.0); MEAN CORPUSCULAR HEMOGLOBIN 30.5 pg (27.0-33.0); MEAN CORPUSCULAR HGB CONC 34.4 g/dl (32.0-36.5); MEAN CORPUSCULAR VOLUME 88.7 fl (80.0-96.0); MONO # 0.6 10^3/uL (0.0-0.8); MONO % 8.3 % (2.0-8.0); NEUTROPHILS # 2.6 10^3/uL (1.5-8.5); NEUTROPHILS % 38.5 % (36.0-66.0); PLATELET COUNT, AUTOMATED 150 10^3/uL (150-450); RED BLOOD COUNT 4.62 10^6/uL (4.30-6.10); WHITE BLOOD COUNT 6.7 10^3/uL (4.0-10.0)
[2021-03-30 19:19] LABS: ALBUMIN 4.1 GM/DL (3.2-5.2); ALT/SGPT 38 U/L (12-78); BILIRUBIN,TOTAL 0.3 MG/DL (0.2-1.0); BLOOD UREA NITROGEN 21 MG/DL (7-18); CALCIUM LEVEL 9.6 MG/DL (8.5-10.1); CARBON DIOXIDE LEVEL 28 MEQ/L (21-32); CHLORIDE LEVEL 106 MEQ/L (98-107); GLOMERULAR FILTRATION RATE > 60.0 (>56); GLUCOSE, FASTING 109 MG/DL (70-100); IMMUNOGLOBULIN G 937 MG/DL (681-1648); LDH LACTATE DEHYDROGENASE 140 U/L (87-241); POTASSIUM SERUM 4.6 MEQ/L (3.5-5.1); SODIUM LEVEL 140 MEQ/L (136-145); TOTAL PROTEIN 7.1 GM/DL (6.4-8.2)
[2021-03-30 19:24] LABS: IMMUNOGLOBULIN M 16.9 MG/DL (40-230)
[2021-04-05 14:08] LABS: BETA 2 MICROGLOBULIN 1.4 mg/L (0.6-2.4)
== END ==
LOC: M LAB 15:52
PROVIDERS: ATTEND Internal Medicine Hematology & Oncology
DX: C91.10 Chronic lymphocytic leukemia of B-cell type not having achieved remission (principal)

== ENCOUNTER → 2021-04-01 | Outpatient (CLI) | payer MEDICARE, MEDICAID ==
[~2021-04-01] MED LIST changes: +AMLO2.5T3; +COQ1200C3 PO; +ISOVUE-370 76% 100ML VIAL As Ordered ONE; +K-TA10TA2 PO; +MAGN500C2 PO; +NOXI1TAB PO; +OMEGCAP4 PO
== END ==
LOC: M RAD 15:32
PROVIDERS: ATTEND Internal Medicine Hematology & Oncology
DX: C91.10 Chronic lymphocytic leukemia of B-cell type not having achieved remission (principal)
CPT/HCPCS: 70491; 71260; 74177; Q9967

== ENCOUNTER → 2021-04-11 | Outpatient (CLI) | payer MEDICARE, MEDICAID ==
[~2021-04-11] MED LIST changes: -AMLO2.5T3; -COQ1200C3 PO; -ISOVUE-370 76% 100ML VIAL As Ordered ONE; -K-TA10TA2 PO; -MAGN500C2 PO; -NOXI1TAB PO; -OMEGCAP4 PO
== END ==
LOC: M LAB 13:40
PROVIDERS: ATTEND Internal Medicine Hematology & Oncology
DX: C91.10 Chronic lymphocytic leukemia of B-cell type not having achieved remission (principal)

== ENCOUNTER → 2021-05-17 | Outpatient (CLI) | payer MEDICARE, MEDICAID ==
--- NOTE | 2021-05-18 11:48 | REP ---
INDICATION: HYPERLIPIDEMIA COMPARISON: None. TECHNIQUE: Real-time ultrasound evaluation and duplex Doppler interrogation of the extracranial carotid vasculature is performed. FINDINGS: There is mild plaquing and narrowing in both carotid bulbs extending into the internal and external carotid arteries. Luminal narrowing is less than 50%. There is no evidence of hemodynamically significant stenosis of either internal carotid artery. Normal flow velocities are seen. The vertebral arteries demonstrate normal direction of flow. Somewhat prominent lymph nodes are seen in the right neck soft tissues, largest measures 3.3 x 0.6 x 1.4 cm. RIGHT LEFT Peak systolic velocity ICA 86.8 cm/s 83.2 cm/s End diastolic velocity ICA 31.0 cm/s 14.7 cm/s Peak systolic velocity CCA 109.7 cm/s 121.1cm/s Peak systolic velocity ECA 130.8 cm/s 101.1 cm/s ICA/CCA ratio 0.8 0.7 IMPRESSION: Bilateral luminal narrowing of the internal carotid arteries less than 50%. No evidence of hemodynamically significant stenosis. <Electronically signed by Philippe Palma > 05/18/21 [id number]
== END ==
LOC: M RAD 12:43
PROVIDERS: ATTEND Pediatrics
DX: E78.5 Hyperlipidemia, unspecified (principal); I65.23 Occlusion and stenosis of bilateral carotid arteries

== ENCOUNTER → 2021-05-24 | Outpatient (CLI) | payer MEDICARE, MEDICAID ==
--- NOTE | 2021-05-27 14:01 | ECHO ---
ECHOCARDIOGRAM DATE OF PROCEDURE: 05/24/2021 Age: Gender: Height: 71 inches Weight: 199 pounds REFERRING PHYSICIAN: Dr. Karen Helms INDICATION: Systemic hypertension (primary) MEASUREMENTS: 2D Measurements: Aortic root 3.3 cm Left atrium 3.7 cm Left atrial volume index 24 Inferior septum 1.09 cm Posterior wall 1.09 cm Left ventricle diastole 3.8 cm Proximal ascending aorta 3.3 cm Inferior vena cava 1.8 cm Doppler Measurements: Very mild aortic regurgitation No aortic stenosis Aortic valve velocity 148 cm/s Mild mitral regurgitation Mitral E velocity 69.6 cm/s Mitral A velocity 75.0 cm/s Mitral deceleration time 236 msec Very mild tricuspid regurgitation Trace pulmonic regurgitation Pulmonary artery systolic pressure 30 mmHg MITRAL ANNULAR TISSUE DOPPLER E prime lateral 9.0 cm/s DESCRIPTION: Rhythm was sinus. Image quality was fair. No pericardial effusion. This was a 2D, M-mode, color flow Doppler, and pulsed wave Doppler examination and included mitral annular tissue Doppler. CONCLUSIONS: 1. Normal left ventricle internal dimensions and wall thickness. Normal regional LV wall motion and wall thickening. Normal LV systolic function. LVF 60-65% by visual assessment. Grade 1 LV diastolic dysfunction. 2. Moderate aortic valve sclerosis of a 3-cuspid aortic valve. Very mild aortic regurgitation. No aortic stenosis. 3. Mild mitral annular calcification. Mild mitral regurgitation. 4. Otherwise normal-appearing echocardiogram and Doppler findings. RECOMMENDATIONS: Recommend a followup echocardiogram and Doppler in three years.
== END ==
LOC: M CARPUL 10:51
PROVIDERS: ATTEND Pediatrics
DX: I10 Essential (primary) hypertension (principal); I35.8 Other nonrheumatic aortic valve disorders

== ENCOUNTER → 2022-07-12 | Outpatient (CLI) | payer MEDICARE, MEDICAID ==
[~2022-07-12] MED LIST changes: +AMLO2.5T3; +COQ1200C3 PO; +GASTROGRAFIN SOLUTION 30ML As Ordered ONE; +ISOVUE-370 76% 100ML VIAL As Ordered ONE; +K-TA10TA2 PO; +LEVE10003 PO; +MAGN500C2 PO; +NOXI1TAB PO; +OMEGCAP4 PO; +VITA100T59 PO
== END ==
LOC: M RAD 13:04
PROVIDERS: ATTEND Specialist
DX: C85.90 Non-Hodgkin lymphoma, unspecified, unspecified site (principal); N28.1 Cyst of kidney, acquired; R91.1 Solitary pulmonary nodule; J32.0 Chronic maxillary sinusitis; J34.1 Cyst and mucocele of nose and nasal sinus; I65.23 Occlusion and stenosis of bilateral carotid arteries
CPT/HCPCS: 70491; 71260; 74177; Q9963; Q9967

== ENCOUNTER → 2022-08-18 | Outpatient (CLI) | payer MEDICARE, MEDICAID ==
[~2022-08-18] MED LIST changes: -GASTROGRAFIN SOLUTION 30ML As Ordered ONE; -ISOVUE-370 76% 100ML VIAL As Ordered ONE
== END ==
LOC: M WHC 09:34
PROVIDERS: ATTEND Pediatrics
DX: M85.88 Other specified disorders of bone density and structure, other site (principal); S22.000D Wedge compression fracture of unspecified thoracic vertebra, subsequent encounter for fracture with routine healing

== ENCOUNTER → 2022-09-28 | Outpatient (CLI) | payer MEDICARE, MEDICAID | LOC: M RAD 08:48 | PROVIDERS: ATTEND Physician Assistant | DX: J32.8 Other chronic sinusitis (principal) ==

== ENCOUNTER 2022-10-18 10:13 | Day surgery (SDC) | payer MEDICARE, MEDICAID ==
[~2022-10-18] VITALS: Ht 182.9 cm; Wt 82.1 kg
[~2022-10-18 10:13] MED LIST changes: +BUTA1CAP3 PO; +D3 S20002 PO; +ENAL1TAB52 PO; -ENAL20TA11 PO; +MAGN400C2 PO; +NS 1,000 ML IV ONE; +POTA99CA2 PO; +PRESCAP PO; +VITA-36 PO; +ZINC50TA4 PO
[2022-10-18] MEDS ORDERED: LIDOCAINE 2% 100MG/5ML SDV (FOR ANES.) As Ordered ONE (11:24)
[2022-10-18] MEDS ORDERED: propofoL 200 MG/20 ML VIAL As Ordered ONE ×2 (11:24→11:47)
[2022-10-18 12:08] VITALS: BP 130/77
== END 2022-10-18 12:18 | disposition home or self-care (01) ==
LOC: M OPP 10:13
PROVIDERS: ATTEND Internal Medicine Gastroenterology
DX: Z12.11 Encounter for screening for malignant neoplasm of colon (principal); K64.0 First degree hemorrhoids; R12 Heartburn; K44.9 Diaphragmatic hernia without obstruction or gangrene; K22.89 Other specified disease of esophagus; K22.70 Barrett's esophagus without dysplasia

== ENCOUNTER → 2022-10-25 | Outpatient (REF) | payer MEDICARE, MEDICAID ==
[~2022-10-25] MED LIST changes: -NS 1,000 ML IV ONE
== END ==
LOC: M LAB REF 12:05
PROVIDERS: ATTEND Pediatrics
DX: Z51.81 Encounter for therapeutic drug level monitoring (principal)

== ENCOUNTER → 2022-10-26 | Outpatient (CLI) | payer MEDICARE, MEDICAID | LOC: M RAD 16:12 | PROVIDERS: ATTEND Pediatrics | DX: M70.61 Trochanteric bursitis, right hip (principal); M53.3 Sacrococcygeal disorders, not elsewhere classified ==

== ENCOUNTER 2022-12-08 13:00 | Outpatient (RCR) | payer MEDICAID, MEDICARE | END 2022-12-13 | LOC: M PT 13:00 | PROVIDERS: ATTEND Pediatrics | DX: M70.61 Trochanteric bursitis, right hip (principal) ==

== ENCOUNTER → 2023-02-06 | Outpatient (REF) | payer MEDICARE, MEDICAID ==
[~2023-02-06] MED LIST changes: -K-TA10TA2 PO; +POTA-165 PO
[2023-02-06 17:55] LABS: CHOLESTEROL RISK RATIO 4.61 (<5); HDL CHOLESTEROL 44.2 MG/DL (>40); LDL CHOLESTEROL 112.6 MG/DL (<100); NON-HDL-C 159.8 MG/DL
[2023-02-06 17:57] LABS: THYROID STIMULATING HORMONE 1.553 uIU/ML (0.55-4.78)
== END ==
LOC: M LAB REF 16:18
PROVIDERS: ATTEND Pediatrics
DX: E78.5 Hyperlipidemia, unspecified (principal); Z12.5 Encounter for screening for malignant neoplasm of prostate
CPT/HCPCS: 80061; 84443; G0103

== ENCOUNTER → 2023-02-12 | Outpatient (CLI) | payer MEDICARE, MEDICAID ==
[~2023-02-12] MED LIST changes: +GASTROGRAFIN SOLUTION 30ML As Ordered ONE; +ISOVUE-370 76% 100ML VIAL As Ordered ONE
== END ==
LOC: M RAD 11:54
PROVIDERS: ATTEND Specialist
DX: C83.00 Small cell B-cell lymphoma, unspecified site (principal)
CPT/HCPCS: 70491; 71260; 74177; Q9963; Q9967

== ENCOUNTER → 2023-03-15 | Outpatient (CLI) | payer MEDICARE, MEDICAID ==
[~2023-03-15] MED LIST changes: -GASTROGRAFIN SOLUTION 30ML As Ordered ONE; -ISOVUE-370 76% 100ML VIAL As Ordered ONE
[2023-03-15 16:48] LABS: BASO % 0.6 % (0.0-1.0); EOS # 0.1 10^3/uL (0.0-0.5); EOS % 1.1 % (0.0-3.0); HEMATOCRIT 40.4 % (42.0-52.0); HEMOGLOBIN 13.7 g/dl (13.5-17.5); LYMPH # 2.6 10^3/uL (1.5-5.0); LYMPH % 40.2 % (24.0-44.0); MEAN CORPUSCULAR HEMOGLOBIN 30.9 pg (27.0-33.0); MEAN CORPUSCULAR HGB CONC 33.9 g/dl (32.0-36.5); MEAN CORPUSCULAR VOLUME 91.2 fl (80.0-96.0); MONO # 0.5 10^3/uL (0.0-0.8); NEUTROPHILS # 3.3 10^3/uL (1.5-8.5); NEUTROPHILS % 49.9 % (36.0-66.0); PLATELET COUNT, AUTOMATED 202 10^3/uL (150-450); RED BLOOD COUNT 4.43 10^6/uL (4.30-6.10); WHITE BLOOD COUNT 6.5 10^3/uL (4.0-10.0)
[2023-03-15 17:21] LABS: ALBUMIN 4.3 G/DL (3.2-5.2); ALKALINE PHOSPHATASE 38 U/L (46-116); ALT/SGPT 19 U/L (7.0-40); AST/SGOT < 8 U/L (<34); BILIRUBIN,TOTAL 0.5 MG/DL (0.3-1.2); BLOOD UREA NITROGEN 27 MG/DL (9-23); CALCIUM LEVEL 9.3 MG/DL (8.3-10.6); CARBON DIOXIDE LEVEL 27 MMOL/L (20-31); CHLORIDE LEVEL 106 MMOL/L (98-107); CREATININE FOR GFR 1.14 MG/DL (0.70-1.30); GLOMERULAR FILTRATION RATE > 60.0 (>49); GLUCOSE, FASTING 105 MG/DL (74-106); POTASSIUM SERUM 4.2 MMOL/L (3.5-5.1); RHEUMATOID FACTOR QUANT < 3.5 IU/ML (<14); SODIUM LEVEL 141 MMOL/L (136-145)
[2023-03-15 17:23] LABS: TESTOSTERONE 276 NG/DL (241-827); VITAMIN B12 LEVEL 929 PG/ML (211-911)
[2023-03-17 11:09] LABS: ANTINUCLEAR ANTIBODIES DIRECT Negative (Negative)
== END ==
LOC: M LAB 16:03
PROVIDERS: ATTEND Specialist
DX: C83.01 Small cell B-cell lymphoma, lymph nodes of head, face, and neck (principal)

== ENCOUNTER → 2023-04-25 | Outpatient (REF) | payer MEDICARE, MEDICAID | LOC: M LAB REF 16:33 | PROVIDERS: ATTEND Pediatrics | DX: R09.81 Nasal congestion (principal) ==

== ENCOUNTER → 2023-04-26 | Outpatient (CLI) | payer MEDICARE, MEDICAID | LOC: M RAD 17:02 | PROVIDERS: ATTEND Pediatrics | DX: M25.551 Pain in right hip (principal) ==

== ENCOUNTER → 2023-10-23 | Outpatient (CLI) | payer MEDICARE, MEDICAID ==
[2023-10-25 23:07] LABS: TISSUE TRANSGLUTAMINASE IgA <2 U/mL (0-3); TISSUE TRANSGLUTAMINASE IgG <2 U/mL (0-5)
== END ==
LOC: M LAB 15:24
PROVIDERS: ATTEND Internal Medicine Gastroenterology
DX: K58.1 Irritable bowel syndrome with constipation (principal)

== ENCOUNTER → 2023-11-09 | Outpatient (CLI) | payer MEDICARE, MEDICAID | LOC: M SOG 14:53 | PROVIDERS: ATTEND Physician Assistant | DX: M25.562 Pain in left knee (principal); M25.561 Pain in right knee ==

== ENCOUNTER → 2024-01-31 | Outpatient (CLI) | payer MEDICARE, MEDICAID ==
[2024-01-31 16:27] LABS: BASO % 0.6 % (0.0-1.0); EOS # 0.1 10^3/uL (0.0-0.5); EOS % 1.4 % (0.0-3.0); HEMATOCRIT 38.2 % (42.0-52.0); HEMOGLOBIN 12.8 g/dl (13.5-17.5); LYMPH % 32.3 % (24.0-44.0); MEAN CORPUSCULAR HEMOGLOBIN 30.7 pg (27.0-33.0); MEAN CORPUSCULAR HGB CONC 33.5 g/dl (32.0-36.5); MEAN CORPUSCULAR VOLUME 91.6 fl (80.0-96.0); MONO # 0.7 10^3/uL (0.0-0.8); MONO % 10.8 % (2.0-8.0); NEUTROPHILS # 3.4 10^3/uL (1.5-8.5); NEUTROPHILS % 54.7 % (36.0-66.0); PLATELET COUNT, AUTOMATED 155 10^3/uL (150-450); RED BLOOD COUNT 4.17 10^6/uL (4.30-6.10); WHITE BLOOD COUNT 6.3 10^3/uL (4.0-10.0)
[2024-01-31 16:53] LABS: LDH LACTATE DEHYDROGENASE 142 U/L (120-246)
[2024-01-31 16:54] LABS: ALBUMIN 4.3 G/DL (3.2-5.2); ALKALINE PHOSPHATASE 34 U/L (46-116); ALT/SGPT 22 U/L (7.0-40); AST/SGOT < 8 U/L (<34); BILIRUBIN,TOTAL 0.6 MG/DL (0.3-1.2); BLOOD UREA NITROGEN 19 MG/DL (9-23); CALCIUM LEVEL 9.8 MG/DL (8.3-10.6); CARBON DIOXIDE LEVEL 27 MMOL/L (20-31); CHLORIDE LEVEL 106 MMOL/L (98-107); CREATININE FOR GFR 1.12 MG/DL (0.70-1.30); GLOMERULAR FILTRATION RATE > 60.0 (>49); GLUCOSE, FASTING 80 MG/DL (74-106); POTASSIUM SERUM 4.6 MMOL/L (3.5-5.1); SODIUM LEVEL 139 MMOL/L (136-145); TOTAL PROTEIN 6.7 G/DL (5.7-8.2)
== END ==
LOC: M LAB 15:24
PROVIDERS: ATTEND Internal Medicine Medical Oncology
DX: C91.10 Chronic lymphocytic leukemia of B-cell type not having achieved remission (principal)

== ENCOUNTER → 2024-02-29 | Outpatient (CLI) | payer MEDICARE, MEDICAID ==
[~2024-02-29] MED LIST changes: +ALBU2.5V10 NEB; +GASTROGRAFIN SOLUTION 30ML As Ordered ONE; +ISOVUE-370 76% 100ML VIAL As Ordered ONE; +SYMB16INH
== END ==
LOC: M RAD 13:24
PROVIDERS: ATTEND Specialist
DX: C91.10 Chronic lymphocytic leukemia of B-cell type not having achieved remission (principal); C83.00 Small cell B-cell lymphoma, unspecified site; R16.0 Hepatomegaly, not elsewhere classified; N28.1 Cyst of kidney, acquired; K57.30 Diverticulosis of large intestine without perforation or abscess without bleeding; I25.10 Atherosclerotic heart disease of native coronary artery without angina pectoris
CPT/HCPCS: 71260; 74177; Q9963; Q9967

== ENCOUNTER → 2024-03-20 | Outpatient (CLI) | payer MEDICARE, MEDICAID ==
[~2024-03-20] MED LIST changes: +ALBU2.5V10; -GASTROGRAFIN SOLUTION 30ML As Ordered ONE; -ISOVUE-370 76% 100ML VIAL As Ordered ONE; +LIDOCAINE 1% MDV 20ML VIAL As Ordered ONE; +MIDAZOLAM INJ 2MG/2ML VIAL As Ordered ONE; +NS 1,000 ML IV SCH; +SUMA100T2; +fentaNYL 100 MCG/2 ML INJECTION As Ordered ONE
[2024-03-20 08:36] VITALS: TEMP 96.9
[2024-03-20 09:39] LABS: BASO # 0.1 10^3/uL (0.0-0.2); EOS # 0.1 10^3/uL (0.0-0.5); EOS % 2.3 % (0.0-3.0); HEMATOCRIT 36.8 % (42.0-52.0); HEMOGLOBIN 12.3 g/dl (13.5-17.5); LYMPH # 1.9 10^3/uL (1.5-5.0); LYMPH % 36.5 % (24.0-44.0); MEAN CORPUSCULAR HEMOGLOBIN 31.1 pg (27.0-33.0); MEAN CORPUSCULAR HGB CONC 33.4 g/dl (32.0-36.5); MEAN CORPUSCULAR VOLUME 93.2 fl (80.0-96.0); MONO # 0.6 10^3/uL (0.0-0.8); MONO % 11.5 % (2.0-8.0); NEUTROPHILS # 2.6 10^3/uL (1.5-8.5); NEUTROPHILS % 48.5 % (36.0-66.0); PLATELET COUNT, AUTOMATED 148 10^3/uL (150-450); RED BLOOD COUNT 3.95 10^6/uL (4.30-6.10); WHITE BLOOD COUNT 5.2 10^3/uL (4.0-10.0)
[2024-03-20 10:15] VITALS: BP 131/74; O2SAT 98
== END ==
LOC: M IRPRO 08:22
PROVIDERS: ATTEND Specialist
DX: D64.9 Anemia, unspecified (principal); C91.10 Chronic lymphocytic leukemia of B-cell type not having achieved remission
CPT/HCPCS: 36415; 38222; 77012; 85025; 88300; 88305; 88311; 88313; 99152; J2250; J3010

== ENCOUNTER → 2024-03-31 | Outpatient (CLI) | payer MEDICARE, MEDICAID ==
[~2024-03-31] MED LIST changes: -LIDOCAINE 1% MDV 20ML VIAL As Ordered ONE; -MIDAZOLAM INJ 2MG/2ML VIAL As Ordered ONE; -NS 1,000 ML IV SCH; -fentaNYL 100 MCG/2 ML INJECTION As Ordered ONE
[2024-03-31 11:08] LABS: BASO % 0.5 % (0.0-1.0); EOS # 0.1 10^3/uL (0.0-0.5); EOS % 2.2 % (0.0-3.0); HEMATOCRIT 40.2 % (42.0-52.0); HEMOGLOBIN 13.5 g/dl (13.5-17.5); LYMPH # 2.3 10^3/uL (1.5-5.0); LYMPH % 39.9 % (24.0-44.0); MEAN CORPUSCULAR HEMOGLOBIN 30.7 pg (27.0-33.0); MEAN CORPUSCULAR HGB CONC 33.6 g/dl (32.0-36.5); MEAN CORPUSCULAR VOLUME 91.4 fl (80.0-96.0); MONO # 0.6 10^3/uL (0.0-0.8); MONO % 10.3 % (2.0-8.0); NEUTROPHILS # 2.7 10^3/uL (1.5-8.5); NEUTROPHILS % 46.9 % (36.0-66.0); PLATELET COUNT, AUTOMATED 175 10^3/uL (150-450); WHITE BLOOD COUNT 5.8 10^3/uL (4.0-10.0)
== END ==
LOC: M LAB 10:09
PROVIDERS: ATTEND Specialist
DX: C91.10 Chronic lymphocytic leukemia of B-cell type not having achieved remission (principal)

== ENCOUNTER → 2024-03-31 | Outpatient (CLI) | payer MEDICARE, MEDICAID | LOC: M CARPUL 10:03 | PROVIDERS: ATTEND Pediatrics | DX: R06.2 Wheezing (principal) ==

== ENCOUNTER → 2024-05-05 | Outpatient (CLI) | payer MEDICARE ==
[2024-05-05 15:25] LABS: BASO # 0.1 10^3/uL (0.0-0.2); BASO % 0.9 % (0.0-1.0); EOS # 0.1 10^3/uL (0.0-0.5); HEMOGLOBIN 12.8 g/dl (13.5-17.5); LYMPH # 2.2 10^3/uL (1.5-5.0); LYMPH % 41.6 % (24.0-44.0); MEAN CORPUSCULAR HEMOGLOBIN 31.1 pg (27.0-33.0); MEAN CORPUSCULAR HGB CONC 33.7 g/dl (32.0-36.5); MEAN CORPUSCULAR VOLUME 92.5 fl (80.0-96.0); MONO # 0.6 10^3/uL (0.0-0.8); MONO % 11.9 % (2.0-8.0); NEUTROPHILS # 2.3 10^3/uL (1.5-8.5); NEUTROPHILS % 43.4 % (36.0-66.0); PLATELET COUNT, AUTOMATED 143 10^3/uL (150-450); RED BLOOD COUNT 4.11 10^6/uL (4.30-6.10); WHITE BLOOD COUNT 5.4 10^3/uL (4.0-10.0)
[2024-05-05 15:56] LABS: ALBUMIN 4.2 G/DL (3.2-5.2); ALKALINE PHOSPHATASE 28 U/L (46-116); ALT/SGPT 18 U/L (7.0-40); AST/SGOT 8 U/L (<34); BILIRUBIN,TOTAL 0.4 MG/DL (0.3-1.2); BLOOD UREA NITROGEN 21 MG/DL (9-23); CALCIUM LEVEL 9.9 MG/DL (8.3-10.6); CARBON DIOXIDE LEVEL 28 MMOL/L (20-31); CHLORIDE LEVEL 108 MMOL/L (98-107); CREATININE FOR GFR 1.07 MG/DL (0.70-1.30); GLOMERULAR FILTRATION RATE > 60.0 (>49); GLUCOSE, FASTING 90 MG/DL (74-106); POTASSIUM SERUM 4.3 MMOL/L (3.5-5.1); SODIUM LEVEL 140 MMOL/L (136-145); TOTAL PROTEIN 6.6 G/DL (5.7-8.2)
== END ==
LOC: M LAB 15:07
PROVIDERS: ATTEND Specialist
DX: C91.10 Chronic lymphocytic leukemia of B-cell type not having achieved remission (principal); D50.9 Iron deficiency anemia, unspecified

== ENCOUNTER → 2024-05-23 | Outpatient (CLI) | payer MEDICARE, MEDICAID ==
[2024-05-23 14:57] LABS: BASO # 0.1 10^3/uL (0.0-0.2); BASO % 0.9 % (0.0-1.0); EOS # 0.1 10^3/uL (0.0-0.5); EOS % 1.2 % (0.0-3.0); HEMATOCRIT 40.3 % (42.0-52.0); HEMOGLOBIN 13.3 g/dl (13.5-17.5); LYMPH # 1.8 10^3/uL (1.5-5.0); LYMPH % 32.3 % (24.0-44.0); MEAN CORPUSCULAR HEMOGLOBIN 30.6 pg (27.0-33.0); MEAN CORPUSCULAR VOLUME 92.9 fl (80.0-96.0); MONO # 0.7 10^3/uL (0.0-0.8); MONO % 13.1 % (2.0-8.0); NEUTROPHILS % 52.1 % (36.0-66.0); PLATELET COUNT, AUTOMATED 149 10^3/uL (150-450); RED BLOOD COUNT 4.34 10^6/uL (4.30-6.10); WHITE BLOOD COUNT 5.7 10^3/uL (4.0-10.0)
[2024-05-23 15:06] LABS: ERYTHROCYTE SEDIMENTATION RATE < 1 mm/hr (0-20)
[2024-05-23 15:20] LABS: C REACTIVE PROTEIN QUANTITATIV < 0.40 MG/DL (<1.0)
[2024-05-23 15:21] LABS: ALBUMIN 4.5 G/DL (3.2-5.2); ALKALINE PHOSPHATASE 33 U/L (40-129); ALT/SGPT 22 U/L (7.0-40); AST/SGOT < 8 U/L (<34); BILIRUBIN,TOTAL 0.4 MG/DL (0.3-1.2); BLOOD UREA NITROGEN 24 MG/DL (9-23); CALCIUM LEVEL 10.3 MG/DL (8.3-10.6); CARBON DIOXIDE LEVEL 27 MMOL/L (20-31); CHLORIDE LEVEL 109 MMOL/L (98-107); CREATININE FOR GFR 1.03 MG/DL (0.70-1.30); GLOMERULAR FILTRATION RATE > 60.0 (>49); GLUCOSE, FASTING 87 MG/DL (74-106); POTASSIUM SERUM 4.8 MMOL/L (3.5-5.1); SODIUM LEVEL 142 MMOL/L (136-145)
== END ==
LOC: M PLALAB 14:01
PROVIDERS: ATTEND Orthopaedic Surgery
DX: M25.551 Pain in right hip (principal)

== ENCOUNTER → 2024-05-23 | Outpatient (CLI) | payer MEDICARE, MEDICAID | LOC: M SOG 08:09 | PROVIDERS: ATTEND Orthopaedic Surgery | DX: M85.88 Other specified disorders of bone density and structure, other site (principal); M25.551 Pain in right hip ==

== ENCOUNTER → 2024-07-11 | Outpatient (CLI) | payer MEDICARE, MEDICAID ==
[~2024-07-11] MED LIST changes: +EQL50TAB2 PO; +ERGO500029; +PRED10TA2; +PROHANCE 279.3MG/ML 15ML VIAL ONE; +PROHANCE 279.3MG/ML 5ML VIAL ONE
== END ==
LOC: M PLAIMG 13:45
PROVIDERS: ATTEND Pediatrics
DX: S73.191A Other sprain of right hip, initial encounter (principal); Y93.9 Activity, unspecified; Y92.9 Unspecified place or not applicable
CPT/HCPCS: 73723; A9576

== ENCOUNTER → 2024-08-19 | Outpatient (REF) | payer MEDICARE, MEDICAID ==
[~2024-08-19] MED LIST changes: -ALBU2.5V10; +ALBU2.5V10 INH; +ASCO500T PO; +BACL10TA2 PO; +DIALTAB PO; +ERGO500029 PO; +IBUP200C28 PO; +OMEP-173 PO; +OMEP40CA5 PO; -PROHANCE 279.3MG/ML 15ML VIAL ONE; -PROHANCE 279.3MG/ML 5ML VIAL ONE; +RA M500C PO; -SYMB16INH; +SYMB16INH INH; +VITA-259 PO; +ZINC30CA PO
[2024-08-19 18:01] LABS: THYROID STIMULATING HORMONE 1.266 uIU/ML (0.55-4.78)
[2024-08-19 18:02] LABS: FREE T4 1.29 NG/DL (0.89-1.76)
== END ==
LOC: M LAB REF 16:30
PROVIDERS: ATTEND Pediatrics
DX: R63.4 Abnormal weight loss (principal)

== ENCOUNTER 2024-08-20 07:05 | Day surgery (SDC) | payer MEDICARE, MEDICAID ==
[~2024-08-20] VITALS: Ht 180.3 cm; Wt 76.2 kg
[2024-08-20] MEDS ORDERED: IPRATROPIUM 0.5MG/ALBUTEROL 2.5MG INH SOL UD 3ML (DUONEB) NEB STA (07:30)
[2024-08-20] MEDS ORDERED: propofoL 200 MG/20 ML VIAL As Ordered ONE (07:48)
[2024-08-20] MEDS ORDERED: LIDOCAINE 2% 100MG/5ML SDV (FOR ANES.) As Ordered ONE (07:49)
[2024-08-20] MEDS ORDERED: PHENYLephrine 500MCG 5ML (100MCG/ML) SYRINGE As Ordered ONE (08:23)
[2024-08-20 09:00] VITALS: BP 142/83; TEMP 97.2; O2SAT 98
== END 2024-08-20 09:06 | disposition home or self-care (01) ==
LOC: M OPP 07:05
PROVIDERS: ATTEND Internal Medicine Gastroenterology
DX: D50.9 Iron deficiency anemia, unspecified (principal); K22.89 Other specified disease of esophagus; K44.9 Diaphragmatic hernia without obstruction or gangrene; I10 Essential (primary) hypertension; K22.70 Barrett's esophagus without dysplasia; I34.1 Nonrheumatic mitral (valve) prolapse; C91.10 Chronic lymphocytic leukemia of B-cell type not having achieved remission; Z86.69 Personal history of other diseases of the nervous system and sense organs; R06.83 Snoring; Z88.8 Allergy status to other drugs, medicaments and biological substances; Z79.899 Other long term (current) drug therapy
CPT/HCPCS: 43239; 88305; J2371

== ENCOUNTER → 2024-09-11 | Outpatient (CLI) | payer MEDICARE, MEDICAID ==
[~2024-09-11] MED LIST changes: +ISOVUE-300 61% 100ML VIAL As Ordered ONE; +LIDOCAINE 1% MDV 20ML VIAL As Ordered ONE; +methylPREDNISolone SUSP 40MG/ML 1ML VIAL (DEPO MEDROL) As Ordered ONE
== END ==
LOC: M RAD 14:06
PROVIDERS: ATTEND Orthopaedic Surgery
DX: M25.551 Pain in right hip (principal); C91.10 Chronic lymphocytic leukemia of B-cell type not having achieved remission
CPT/HCPCS: 20610; 36415; 77002; 80053; 82728; 85025; J0665; J1010; Q9967

== ENCOUNTER → 2024-09-11 | Outpatient (CLI) | payer MEDICARE, MEDICAID ==
[~2024-09-11] MED LIST changes: -ISOVUE-300 61% 100ML VIAL As Ordered ONE; -LIDOCAINE 1% MDV 20ML VIAL As Ordered ONE; -methylPREDNISolone SUSP 40MG/ML 1ML VIAL (DEPO MEDROL) As Ordered ONE
[2024-09-11 14:43] LABS: BASO # 0.1 10^3/uL (0.0-0.2); BASO % 0.9 % (0.0-1.0); EOS # 0.1 10^3/uL (0.0-0.5); EOS % 1.4 % (0.0-3.0); HEMATOCRIT 39.4 % (42.0-52.0); HEMOGLOBIN 13.3 g/dl (13.5-17.5); LYMPH # 2.8 10^3/uL (1.5-5.0); LYMPH % 41.9 % (24.0-44.0); MEAN CORPUSCULAR HEMOGLOBIN 31.8 pg (27.0-33.0); MEAN CORPUSCULAR HGB CONC 33.8 g/dl (32.0-36.5); MEAN CORPUSCULAR VOLUME 94.3 fl (80.0-96.0); MONO # 0.7 10^3/uL (0.0-0.8); MONO % 10.7 % (2.0-8.0); NEUTROPHILS % 44.6 % (36.0-66.0); PLATELET COUNT, AUTOMATED 169 10^3/uL (150-450); RED BLOOD COUNT 4.18 10^6/uL (4.30-6.10); WHITE BLOOD COUNT 6.6 10^3/uL (4.0-10.0)
[2024-09-11 15:04] LABS: ALBUMIN 4.4 G/DL (3.2-5.2); ALKALINE PHOSPHATASE 33 U/L (40-129); ALT/SGPT 26 U/L (7.0-40); AST/SGOT 11 U/L (<34); BILIRUBIN,TOTAL 0.5 MG/DL (0.3-1.2); BLOOD UREA NITROGEN 29 MG/DL (9-23); CALCIUM LEVEL 9.7 MG/DL (8.3-10.6); CARBON DIOXIDE LEVEL 27 MMOL/L (20-31); CHLORIDE LEVEL 103 MMOL/L (98-107); CREATININE FOR GFR 1.08 MG/DL (0.70-1.30); GLOMERULAR FILTRATION RATE > 60.0 (>49); GLUCOSE, FASTING 87 MG/DL (74-106); POTASSIUM SERUM 4.8 MMOL/L (3.5-5.1); SODIUM LEVEL 139 MMOL/L (136-145)
[2024-09-11 15:06] LABS: FERRITIN 394.2 NG/ML (10.5-307.3)
== END ==
LOC: M LAB 14:08
PROVIDERS: ATTEND Specialist
DX: C91.10 Chronic lymphocytic leukemia of B-cell type not having achieved remission (principal)

== ENCOUNTER → 2024-09-19 | Outpatient (CLI) | payer MEDICARE, MEDICAID | LOC: M SOG 08:02 | PROVIDERS: ATTEND Orthopaedic Surgery | DX: Z53.9 Procedure and treatment not carried out, unspecified reason (principal) ==

== ENCOUNTER → 2024-09-25 | Outpatient (CLI) | payer MEDICARE, MEDICAID | LOC: M SOG 07:53 | PROVIDERS: ATTEND Orthopaedic Surgery | DX: M16.11 Unilateral primary osteoarthritis, right hip (principal) ==

== ENCOUNTER → 2024-11-05 | Outpatient (CLI) | payer MEDICARE, MEDICAID ==
[~2024-11-05] MED LIST changes: +ISOVUE-370 76% 100ML VIAL As Ordered ONE
== END ==
LOC: M RAD 15:55
PROVIDERS: ATTEND Nurse Practitioner Women's Health
DX: C83.01 Small cell B-cell lymphoma, lymph nodes of head, face, and neck (principal)
CPT/HCPCS: 70491; 71260; 74177; Q9967

== ENCOUNTER → 2024-11-18 | Outpatient (REF) | payer MEDICARE, MEDICAID ==
[~2024-11-18] MED LIST changes: -ISOVUE-370 76% 100ML VIAL As Ordered ONE
[2024-11-18 18:21] LABS: CREATININE, URINE 243.2 MG/DL; MAU/CREAT RATIO 4.1 MCG/MG (0.0-30.0)
== END ==
LOC: M LAB REF 16:54
PROVIDERS: ATTEND Pediatrics
DX: I10 Essential (primary) hypertension (principal)

== ENCOUNTER → 2024-12-02 | Outpatient (CLI) | payer MEDICARE, MEDICAID ==
[2024-12-02 15:38] LABS: BASO # 0.1 10^3/uL (0.0-0.2); BASO % 0.8 % (0.0-1.0); EOS % 0.5 % (0.0-3.0); HEMATOCRIT 39.6 % (42.0-52.0); HEMOGLOBIN 13.2 g/dl (13.5-17.5); LYMPH # 1.9 10^3/uL (1.5-5.0); LYMPH % 31.7 % (24.0-44.0); MEAN CORPUSCULAR HEMOGLOBIN 31.6 pg (27.0-33.0); MEAN CORPUSCULAR HGB CONC 33.3 g/dl (32.0-36.5); MEAN CORPUSCULAR VOLUME 94.7 fl (80.0-96.0); MONO # 0.6 10^3/uL (0.0-0.8); NEUTROPHILS # 3.4 10^3/uL (1.5-8.5); NEUTROPHILS % 56.8 % (36.0-66.0); PLATELET COUNT, AUTOMATED 180 10^3/uL (150-450); RED BLOOD COUNT 4.18 10^6/uL (4.30-6.10)
[2024-12-02 16:05] LABS: ALBUMIN 4.6 G/DL (3.2-5.2); ALKALINE PHOSPHATASE 32 U/L (40-129); ALT/SGPT 33 U/L (7.0-40); AST/SGOT 18 U/L (<34); BILIRUBIN,TOTAL 0.4 MG/DL (0.3-1.2); BLOOD UREA NITROGEN 32 MG/DL (9-23); CALCIUM LEVEL 9.9 MG/DL (8.3-10.6); CARBON DIOXIDE LEVEL 26 MMOL/L (20-31); CHLORIDE LEVEL 104 MMOL/L (98-107); CREATININE FOR GFR 1.07 MG/DL (0.70-1.30); GLUCOSE, FASTING 86 MG/DL (74-106); IRON (FE) 99 UG/DL (65-175); LDH LACTATE DEHYDROGENASE 182 U/L (120-246); PERCENT SATURATION 34.1 % (19.7-50.0); POTASSIUM SERUM 4.9 MMOL/L (3.5-5.1); SODIUM LEVEL 140 MMOL/L (136-145); TOTAL IRON BINDING CAPACITY 290 UG/DL (250-425); TOTAL PROTEIN 6.9 G/DL (5.7-8.2)
[2024-12-02 16:09] LABS: FERRITIN 347.3 NG/ML (10.5-307.3)
[2024-12-02 16:10] LABS: VITAMIN B12 LEVEL 1220 PG/ML (211-911)
[2024-12-02 16:12] LABS: FOLATE > 24.00 NG/ML (>5.4)
== END ==
LOC: M PLALAB 12:52
PROVIDERS: ATTEND Specialist
DX: C91.10 Chronic lymphocytic leukemia of B-cell type not having achieved remission (principal)

== ENCOUNTER → 2025-01-21 | Outpatient (CLI) | payer MEDICARE, MEDICAID ==
[~2025-01-21] VITALS: Ht 180.3 cm; Wt 75.3 kg
[~2025-01-21] MED LIST changes: +DIVA-41 PO; -DIVA500T94 PO; +DULO30CA9 PO; -EQL50TAB2 PO; +GABA-1171 PO; +VITA100093 PO; +VITA1TAB82 PO
[2025-01-21 14:36] VITALS: BP 108/70; O2SAT 99
== END ==
LOC: M PAL 14:02
PROVIDERS: ATTEND Physician Assistant
DX: Z51.5 Encounter for palliative care (principal); C91.10 Chronic lymphocytic leukemia of B-cell type not having achieved remission; M51.360 Other intervertebral disc degeneration, lumbar region with discogenic back pain only; G60.9 Hereditary and idiopathic neuropathy, unspecified; Z79.891 Long term (current) use of opiate analgesic; Z79.899 Other long term (current) drug therapy; Z88.5 Allergy status to narcotic agent; Z88.8 Allergy status to other drugs, medicaments and biological substances; Z88.6 Allergy status to analgesic agent

== ENCOUNTER → 2025-02-25 | Outpatient (CLI) | payer MEDICARE, MEDICAID | LOC: M RAD 13:53 | PROVIDERS: ATTEND Pediatrics | DX: R07.9 Chest pain, unspecified (principal) ==

== ENCOUNTER → 2025-04-09 | Outpatient (CLI) | payer MEDICARE, MEDICAID ==
[~2025-04-09] MED LIST changes: +ZINC50TA37 PO; -ZINC50TA4 PO
== END ==
LOC: M CARPUL 09:40
PROVIDERS: ATTEND Pediatrics
DX: R61 Generalized hyperhidrosis (principal); Z79.899 Other long term (current) drug therapy

== ENCOUNTER → 2025-04-27 | Outpatient (CLI) | payer MEDICARE, MEDICAID ==
[~2025-04-27] VITALS: Ht 180.3 cm; Wt 77.8 kg
[2025-04-27 13:27] VITALS: BP 120/66; O2SAT 98
== END ==
LOC: M PAL 12:57
PROVIDERS: ATTEND Physician Assistant
DX: Z51.5 Encounter for palliative care (principal); C91.10 Chronic lymphocytic leukemia of B-cell type not having achieved remission; M19.90 Unspecified osteoarthritis, unspecified site; G62.9 Polyneuropathy, unspecified; Z79.891 Long term (current) use of opiate analgesic; Z79.899 Other long term (current) drug therapy; Z79.52 Long term (current) use of systemic steroids; Z79.83 Long term (current) use of bisphosphonates; Z88.5 Allergy status to narcotic agent; Z88.6 Allergy status to analgesic agent

== ENCOUNTER → 2025-05-08 | Outpatient (CLI) | payer MEDICARE, MEDICAID | LOC: M SOG 07:38 | PROVIDERS: ATTEND Physician Assistant | DX: M17.0 Bilateral primary osteoarthritis of knee (principal) ==

== ENCOUNTER → 2025-05-20 | Outpatient (REF) | payer MEDICARE, MEDICAID ==
[2025-05-20 17:04] LABS: VALPROIC ACID (DEPAKOTE) 61.3 UG/ML (50.0-100.0)
[2025-05-20 17:05] LABS: CHOLESTEROL LEVEL 233.0 MG/DL (<200); CHOLESTEROL RISK RATIO 4.12 (<5); LDL CHOLESTEROL 153.5 MG/DL (<100); NON-HDL-C 176.5 MG/DL; PSA SCREENING 0.44 NG/ML (< 4.00); TRIGLYCERIDES LEVEL 115.0 MG/DL (<150)
== END ==
LOC: M LAB REF 16:19
PROVIDERS: ATTEND Pediatrics
DX: E78.5 Hyperlipidemia, unspecified (principal); Z12.5 Encounter for screening for malignant neoplasm of prostate; Z51.81 Encounter for therapeutic drug level monitoring
CPT/HCPCS: 80061; 80164; 80177; G0103

== ENCOUNTER → 2025-06-18 | Outpatient (CLI) | payer MEDICARE, MEDICAID | LOC: M RAD 12:26 | PROVIDERS: ATTEND Physician Assistant | DX: M47.26 Other spondylosis with radiculopathy, lumbar region (principal); M48.061 Spinal stenosis, lumbar region without neurogenic claudication ==